=== PATIENT | female | born 1960 | race Two or more races ===

== ENCOUNTER 2018-08-27 23:55 | Emergency (ER) | payer OTHER ==
[~2018-08-27] VITALS: Ht 160 cm; Wt 74.4 kg
[2018-08-28 00:46] LABS: Basophils # (auto) 0.1 uL; Basophils % (auto) 1.2 % (0.0-2.0); Eosinophils # (auto) 0.1 uL; Eosinophils % (auto) 1.5 % (0.0-7.0); Hematocrit 43.1 % (36.0-46.0); Hemoglobin 14.5 g/dL (12.2-16.2); Lymphocytes # (auto) 1.1 uL; Lymphocytes % (auto) 11.7 % (10.0-50.0); Mean Corpuscular Hemoglobin 31.3 pg (28.0-32.0); Mean Corpuscular Hgb Conc. 33.6 g/dL (32.0-36.0); Mean Corpuscular Volume 93.2 fL (80.0-100.0); Monocytes # (auto) 0.4 uL; Monocytes % (auto) 4.2 % (0.0-12.0); Neutrophils # (auto) 7.5 uL; Neutrophils % (auto) 81.4 % (37.0-80.0); Nucleated Red Blood Cells % 0.1 %; Platelet Count (auto) 387 10^3/uL (140-450); Red Blood Cells 4.63 10^6/uL (4.0-5.20); Red Cell Distribution Width 13.6 % (11.8-14.3); White Blood Cell 9.1 10^3/uL (4.4-10.8)
[2018-08-28 01:01] LABS: INR 0.93 (0.9-1.15); Partial Thromboplastin Time 26.1 sec (23.78-33.04)
[2018-08-28 01:04] LABS: Albumin 3.9 g/dL (3.4-5.0); Amylase 44 U/L (25-115); Anion Gap 7 (5-15); Calcium 8.6 mg/dL (8.5-10.1); Carbon Dioxide 27 mmol/L (21-32); Chloride 106 mmol/L (98-107); Glucose 108 mg/dL (74-106); Lipase 170 U/L (73-393); Magnesium 2.4 mg/dL (1.6-2.6); Potassium 3.7 mmol/L (3.5-5.1); Sodium 140 mmol/L (136-145)
[2018-08-28 01:19] LABS: Urine Bacteria FEW /hpf (None Seen); Urine Blood 1+ /uL (Negative); Urine Specific Gravity 1.015 (1.001-1.035); Urine WBC 18 /hpf (0 - 5)
[2018-08-28 01:49] LABS: Alanine Aminotransferase 194 U/L (13-56); Alkaline Phosphatase 146 U/L (45-117); Aspartate Aminotransferase 179 U/L (15-37); BUN/Creatinine Ratio 16.9; Bilirubin, Total 1.6 mg/dL (0.2-1.0); Blood Urea Nitrogen 12 mg/dL (7-18); GFR African American 109 mL/min; GFR Non-African American 90 mL/min; Total Protein 7.9 g/dL (6.4-8.2)
[2018-08-28 04:08] VITALS: BP 120/60
[2018-08-28] MEDS ORDERED: cefTRIAXone SOD 1,000 MG VL IM ONE (04:15)
[2018-08-28] MEDS ORDERED: KETOROLAC TROMETH 60MG/2ML VIAL IM ONE (04:15)
[2018-08-28] MEDS ORDERED: ONDANSETRON ODT 4 MG TAB PO ONE (04:15)
== END 2018-08-28 04:31 | disposition home or self-care (01) ==
LOC: ER 23:57
DX: N39.0 Urinary tract infection, site not specified (principal); K80.20 Calculus of gallbladder without cholecystitis without obstruction; Z90.710 Acquired absence of both cervix and uterus
CPT/HCPCS: 36415; 71046; 74176; 80053; 81001; 82150; 83690; 83735; 84484; 85025; 85610; 85730; 93005; 96372; 99284; J0696; J1885; Q0162

== ENCOUNTER 2024-04-02 06:42 | Day surgery (SDC) | payer MEDICAID ==
[2024-04-01 09:07] LABS: Urine Bacteria None Seen /hpf (None Seen)
[2024-04-01 10:05] LABS: Basophils # (auto) 0 10 ^3/uL (0-0.2); Basophils % (auto) 0.7 % (0.0-2.0); Eosinophils # (auto) 0.1 10 ^3/uL (0-0.8); Eosinophils % (auto) 1.6 % (0.0-7.0); Hematocrit 42.8 % (36.0-46.0); Hemoglobin 14.8 g/dL (12.2-16.2); Lymphocytes # (auto) 2.2 10 ^3/uL (0.4-5.4); Lymphocytes % (auto) 35.4 % (10.0-50.0); Mean Corpuscular Hemoglobin 32.2 pg (28.0-32.0); Mean Corpuscular Hgb Conc. 34.6 g/dL (32.0-36.0); Mean Corpuscular Volume 92.9 fL (80.0-100.0); Monocytes # (auto) 0.3 10 ^3/uL (0-1.3); Monocytes % (auto) 5.5 % (0.0-12.0); Neutrophils # (auto) 3.5 10 ^3/uL (1.6-8.6); Neutrophils % (auto) 56.8 % (37.0-80.0); Nucleated Red Blood Cells % 0.1 %; Platelet Count (auto) 361 10^3/uL (140-450); Red Blood Cells 4.61 10^6/uL (4.0-5.20); Red Cell Distribution Width 13.3 % (11.8-14.3); White Blood Cell 6.2 10^3/uL (4.4-10.8)
[2024-04-01 10:19] LABS: INR 0.99 (0.9-1.15); Partial Thromboplastin Time 26.2 SEC (24.5-34.5); Prothrombin Time 10.5 sec (9.3-11.8)
[2024-04-01 10:22] LABS: Urine Blood 1+ /uL (Negative); Urine Clarity Clear (Clear); Urine Color Light-Yellow (Yellow); Urine Protein, UAD Negative (Negative); Urine Specific Gravity 1.017 (1.001-1.035); Urine Urobilinogen Normal (Negative); Urine WBC <1 /hpf (0 - 5)
[2024-04-01 10:23] LABS: Alanine Aminotransferase 20 U/L (7-40); Albumin 4.5 g/dL (3.2-4.8); Alkaline Phosphatase 107 U/L (46-116); Anion Gap 6 (5-15); Aspartate Aminotransferase 20 U/L (13-40); BUN/Creatinine Ratio 18.9 (10.0-20.0); Bilirubin, Total 0.7 mg/dL (0.2-1.0); Blood Urea Nitrogen 14 mg/dL (9-23); Carbon Dioxide 27 mmol/L (20-31); Chloride 109 mmol/L (98-107); Glucose 96 mg/dL (74-106); Potassium 4.6 mmol/L (3.5-5.1); Sodium 142 mmol/L (136-145); Total Protein 7.6 g/dL (5.7-8.2)
[~2024-04-02] VITALS: Ht 160 cm; Wt 75.7 kg
[~2024-04-02 06:42] MED LIST: ATOR10TA PO
[2024-04-02] MEDS ORDERED: ceFAZolin 2 GM/D5W100ml 100 ML IV ONE (07:28)
[2024-04-02] MEDS ORDERED: MEPERIDINE HCL (50 MG/ML) 1 ML VIAL ONE (08:23)
[2024-04-02] MEDS ORDERED: NEOSTIGMINE 1 MG/ML INJ (10mg/10ML VIAL) ONE (08:23)
[2024-04-02] MEDS ORDERED: DexAMETHasone SOD PHOS 10MG/1ML VIAL INJ ONE (08:23)
[2024-04-02] MEDS ORDERED: LIDOCAINE 1% INJ PF 5ML AMP ONE (08:23)
[2024-04-02] MEDS ORDERED: fentaNYL CITRATE 100 MCG/2 ML VL ONE (08:23)
[2024-04-02] MEDS ORDERED: KETAMINE 50mg/ML 1ml syringe ONE (08:23)
[2024-04-02] MEDS ORDERED: SODIUM CHLORIDE LOCK 10 ML ONE (08:23)
[2024-04-02] MEDS ORDERED: ONDANSETRON HCL 4 MG/2 ML VIAL ONE (08:23)
[2024-04-02] MEDS ORDERED: LIDOCAINE HCL 2% TOP JELLY 5ML TOP ONE (08:23)
[2024-04-02] MEDS ORDERED: PROPOFOL 10 MG/ML 20 ML IV ONE (08:23)
[2024-04-02] MEDS ORDERED: MIDAZOLAM HCL 2MG/2ML 2ml VIAL (1mg/ml) ONE (08:23)
[2024-04-02] MEDS ORDERED: GLYCOPYRROLATE 0.2 MG/ML 1ML VIAL ONE (08:23)
[2024-04-02] MEDS ORDERED: ROCURONIUM 10MG/ML 10ML VIAL IV ONE (08:23)
[2024-04-02] MEDS ORDERED: HYDROmorphone HCL 2 MG/ML VL/or syr IV PRN ×2 (08:30)
[2024-04-02] MEDS ORDERED: KETOROLAC TROMETH 30 MG/ML 1ML VIAL IV ONE (08:30)
[2024-04-02] MEDS ORDERED: fentaNYL CITRATE 100 MCG/2 ML VL IV PRN (08:30)
[2024-04-02] MEDS ORDERED: METOCLOPRAMIDE HCL 5MG/ml INJ 2ml VIAL IV ONE (08:30)
[2024-04-02] MEDS ORDERED: MORPHINE SULFATE INJ 2 MG/ml SYRG IV PRN (08:30)
[2024-04-02] MEDS ORDERED: BUPIVACAINE 0.5% P/F INJ 10 ML VIAL ONE (08:32)
[2024-04-02] MEDS: LIDOCAINE 1%HCL (LOCAL ANESTH) 10 ML MDV IJ ONE (09:29)
[2024-04-02 10:09] VITALS: PULSE 94; RESP 18; TEMP 98; O2SAT 96
[2024-04-02 10:25] VITALS: BP 160/77; PULSE 93; RESP 12; O2SAT 100
--- NOTE | 2024-04-02 14:05 | DVHOP ---
DATE OF SURGERY: 04/02/2024 PREOPERATIVE DIAGNOSIS: Recurrent incisional hernia. POSTOPERATIVE DIAGNOSIS: Recurrent incisional hernia. SURGEON: Anurag Zimmerman MD OVERHEAD CRANE TECHNICIAN: Maximo vazquez. ANESTHESIA: General endotracheal. ANESTHESIOLOGIST: Dr. Kilpatrick. PROCEDURE: Repair of recurrent incisional hernia and lysis of adhesions. DESCRIPTION OF PROCEDURE: Under adequate anesthesia, with the patient's skin prepped and draped after having localized to the hernia itself in the preop area, the patient's lateral aspect of a subcostal incision was opened. Scar divided down to fascia, which was widely retracted was mobilized, the hernia was through the rectus external oblique as well as the transversalis fascia. The layers were grasped with Priyanka clamps and separately approximated using nonabsorbable sutures. Subcutaneous tissues were then irrigated. The patient's wound was closed. It is of note that there were numerous adhesions prior to the repair of the hernia itself that were lysed in order to a certain direct approximation of the fascial defect. The wound was closed using Monocryl sutures, Dermabond glue and Steri-Strips. The patient remained stable throughout the procedure, left the operating room following an accurate needle and sponge count. The number given to me as her daughter went answered. Anurag Zimmerman MD PF TID: [id number] RECEIPT: [id number]
== END 2024-04-02 10:09 | disposition home or self-care (01) ==
LOC: SUR 06:42
PROVIDERS: ATTEND Surgery
DX: K43.2 Incisional hernia without obstruction or gangrene (principal); K66.0 Peritoneal adhesions (postprocedural) (postinfection); E78.5 Hyperlipidemia, unspecified; I10 Essential (primary) hypertension; Z90.49 Acquired absence of other specified parts of digestive tract; Z98.890 Other specified postprocedural states; Z79.899 Other long term (current) drug therapy
CPT/HCPCS: 36415; 49615; 80053; 81001; 85025; 85610; 85730; 86850; 86900; 86901; J1100; J2003; J2175; J2250; J2405; J2704; J3010; J3490

== ENCOUNTER 2024-07-28 11:24 | Inpatient (IN) | payer MEDICAID ==
[~2024-07-28] VITALS: Ht 167.6 cm; Wt 79.0 kg
--- NOTE | 2024-07-28 11:57 | ECG ---
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
--- NOTE | 2024-07-28 12:15 | ED.PDOC ---
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 Pt reports on having a Hernia Sx on her right ABD and on 04/02/24. Pt assumes that the Sx is associated w/ dizziness for 20 days, FLEMING/Blurry Vision x8 days. Pt's BS was 111 ion triage. PMHx of HTN. SHx of Hyster ectomy, Hernia Sx and Cholecystectomy. Denies chills, fever, N/V/D, SOB, CP or no other associated symptom's, modifiers, recent injuries or sick contacts at this time. Chief Complaint: Dizziness Time Seen by MD: 12:10 Primary Care Provider: none Reviewed Notes: Nurses Notes, Medications, Allergies Allergies: Coded Allergies: NO KNOWN ALLERGIES (Unverified , 10/08/14) Home Meds Reported Medications Atorvastatin Calcium (Lipitor) Unknown Strength Tab, PO DAILY, TAB 03/28/24 Information Source: Patient Mode of Arrival: Ambulatory Severity: Moderate Timing: Weeks Duration: Since onset Prehospital treatment: None Past Medical History PAST MEDICAL HISTORY: HTN Surgical History: Cholecystectomy, Hernia Repair, Hysterectomy MOTORMAN/WOMAN History: No Pertinent MOTORMAN/WOMAN History Family History Family History: Reviewed,noncontributory to illness, Unknown Social History Smoker: Non-Smoker Alcohol: Denies ETOH Use Drugs: Denies Drug Use Lives In: Home Constitutional: denies: chills, diaphoresis, fatigue, fever, malaise, sweats, weakness, others EENTM: reports: blurred vision; denies: double vision, ear bleeding, ear discharge, ear drainage, ear pain, ear ringing, eye pain, eye redness, hearing loss, mouth pain, mouth swelling, nasal discharge, nose bleeding, nose congestion, nose pain, photophobia, tearing, throat pain, throat swelling, voice changes, others Respiratory: denies: cough, hemoptysis, orthopnea, SOB at rest, shortness of breath, SOB with excertion, stridor, wheezing, others Cardiovascular: denies: chest pain, dizzy spells, diaphoresis, Dyspnea on exertion, edema, irregular heart beat, left arm pain, lightheadedness, palpitations, PND, syncope, others Gastrointestinal: denies: abdomen distended, abdominal pain, blood streaked bowels, constipated, diarrhea, dysphagia, difficulty swallowing, hematemesis, melena, nausea, poor appetite, poor fluid intake, rectal bleeding, rectal pain, vomiting, others Genitourinary: denies: abnormal vagina bleeding, burning, dyspareunia, dysuria, flank pain, frequency, hematuria, incontinence, pain, , vagina discharge, urgency, others Neurological: reports: dizziness, headache; denies: fainting, left sided numbness, left sided weakness, numbness, paresthesia, pre-existing deficit, ri ght sided numbness, right sided weakness, seizure, speech problems, tingling, tremors, weakness, others Musculoskeletal: denies: back pain, gout, joint pain, joint swelling, muscle pain, muscle stiffness, neck pain, others Integumetry: denies: bruises, change in color, change in hair/nails, dryness, laceration, lesions, lumps, rash, wounds, others Allergic/Immunocompromised: denies: Difficulty Healing, Frequent Infections, Hives, Itching, others Hematologic/Lymphatic: denies: anemia, blood clots, easy bleeding, easy bruising, swollen glands, others Endocrine: denies: excessive hunger, excessive sweating, excessive thirst, excessive urination, flushing, intolerance to cold, intolerance to heat, unexplained weight gain, unexplained weight loss, others Psychiatric: denies: anxiety, bipolar disorder, depression, hopeless, panic disorder, schizophrenia, sleepless, suicidal, others All Other Systems: Reviewed and Negative Physical Exam General Appearance: Moderate Distress, Normal HEENT: Normal ENT Inspection, Pharynx Normal, TMs Normal Neck: Full Range of Motion, Non-Tender, Normal, Normal Inspection Respiratory: Chest Non-Tender, Lungs Clear, No Accessory Muscle Use, No Respiratory Distress, Normal Breath Sounds Cardiovascular: No Edema, No JVD, No Murmur, No Gallop, Normal Peripheral Pulses, Regular Rate/Rhythm Breast Exam: Deferred Gastrointestinal: No Organomegaly, Non Tender, No Pulsatile Mass, Normal Bowel Sounds, Soft Genitalia: Deferred Pelvic: Deferred Rectal: Deferred Extremities: No calf tenderness, Normal capillary refill, Normal inspection, Normal range of motion, Non-tender, No pedal edema Musculoskeletal : Apperance: Normal Neurologic: Alert, economic developer II-XII nml as Tested, No Motor Deficits, Normal Affect, Normal Mood, No Sensory Deficits Cerebellar Function: Normal Reflexes: Normal Skin: Dry, Normal Color, Warm Peripheral Pulses: 3+ Radial (R), 3+ Radial (L) Lymphatic: No Adenopathy Was a procedure done? Was a procedure done?: No Differential Dx Considerations may include: TIA Electrolyte imbalance X-Ray, Labs, Meds, VS Vital Signs Date Time Temp Pulse Resp B/P (MAP) Pulse Ox O2 Delivery O2 Flow Rate FiO2 07/28/24 11:47 90 07/28/24 11:36 97.5 64 17 121/83 (96) 100 97.5 Lab Test 07/28/24 11:35 Range/Units POC Glucose 111 H 70-106 mg/dl Patient alert. Complaining of headache. Vitals stable. Answering questions. Moving all extremities. Possible TIA. Possibly will need MRI. CT of the head reviewed does not show any acute changes. Was given aspirin. Neurology consultation. Explained to the patient. Continue cardiac monitoring. Time of 1ST Reevaluation: 12:40 Reevaluation 1ST: Unchanged Patient Education/Counseling: Diagnosis, Treatment, Prognosis Family Education/Counseling: No Family Present Departure 1 Departure Time of Disposition: 13:59 Impression: Primary Impression: TIA (transient ischemic attack) Disposition: ADMITTED INPATIENT Admit to: Med Surg Condition: Guarded Critical Care Note Critical Care Time?: No Stability Stability form required: No Heart Score Heart Score: Heart Score Response (Comments) Value History N/A 0 EKG N/A 0 Age N/A 0 Risk Factors N/A 0 Troponin N/A 0 Total 0 I personally scribed for HELDER ROSA MD ([email or web address]) on 07/28/24 at 12:15. Electronically submitted by Jerardo Carranza ([email or web address]). HELDER ROSA MD Jul 28, 2024 12:15
--- NOTE | 2024-07-28 13:47 | DVH ---
CT brain without contrast CLINICAL INDICATION: Altered mental status FINDINGS: The study was performed in a multidetector scanner. This study performed taking axial image s from the skull base up to the vertex. Both brain and bone windows are photographed. Dose lowering techniques have been used including automated exposure control and adjustment of mA and /or KV according to patient size. Normal and symmetrical shape and density of brain parenchyma above and below the tentorium is seen. T here is no mass, midline shift or hydrocephalus. No intra/extra-axial collections demonstrated. There is no intracranial hemorrhage. The calvarium is intact. IMPRESSION: 1. No acute intracranial pathology Computed Tomographic Radiation Dosimetry Report: Total CTDI vol = 52 mGy Total DLP = 1029mGy-cm All C T scans at this medical facility are performed using dose modulation techniques as appropriate to a p erformed exam including the following: Automated exposure control was utilized; adjustment of the MA and/or KvP according to patient size; and use of iterative reconstruction technique.
[2024-07-28 14:15] VITALS: PULSE 87; RESP 18; O2SAT 96
[2024-07-28] MEDS: ASPirin 325 MG TAB PO ONE (14:32)
[2024-07-28 15:46] LABS: Basophils # (auto) 0 10 ^3/uL (0-0.2); Basophils % (auto) 0.4 % (0.0-2.0); Eosinophils # (auto) 0.1 10 ^3/uL (0-0.8); Eosinophils % (auto) 1.6 % (0.0-7.0); Hematocrit 44.7 % (36.0-46.0); Hemoglobin 15.3 g/dL (12.2-16.2); Lymphocytes # (auto) 3.3 10 ^3/uL (0.4-5.4); Lymphocytes % (auto) 37.1 % (10.0-50.0); Mean Corpuscular Hemoglobin 31.9 pg (28.0-32.0); Mean Corpuscular Hgb Conc. 34.3 g/dL (32.0-36.0); Mean Corpuscular Volume 92.9 fL (80.0-100.0); Monocytes # (auto) 0.6 10 ^3/uL (0-1.3); Monocytes % (auto) 6.5 % (0.0-12.0); Neutrophils # (auto) 4.8 10 ^3/uL (1.6-8.6); Neutrophils % (auto) 54.4 % (37.0-80.0); Nucleated Red Blood Cells % 0.1 %; Platelet Count (auto) 390 10^3/uL (140-450); Red Blood Cells 4.82 10^6/uL (4.0-5.20); Red Cell Distribution Width 13.5 % (11.8-14.3); White Blood Cell 8.9 10^3/uL (4.4-10.8)
[2024-07-28 15:54] LABS: Chloride 105 mmol/L (98-107); Potassium 4.4 mmol/L (3.5-5.1); Sodium 139 mmol/L (136-145)
[2024-07-28 15:55] LABS: Anion Gap 7 (5-15); Carbon Dioxide 27 mmol/L (20-31)
[2024-07-28 15:59] LABS: Calcium 10.5 mg/dL (8.7-10.4)
[2024-07-28 16:00] LABS: Glucose 98 mg/dL (74-106)
[2024-07-28 16:01] LABS: BUN/Creatinine Ratio 25.6 (10.0-20.0); Blood Urea Nitrogen 21 mg/dL (9-23)
[2024-07-28] MEDS ORDERED: ONDANSETRON HCL 4 MG/2 ML VIAL IV PRN (18:15)
[2024-07-28 22:34] VITALS: BP 129/76; PULSE 79; PULSE 82; RESP 18; TEMP 98; O2SAT 97
[2024-07-29] VITALS (7 sets, daily range): BP systolic 126–137; BP diastolic 52–78; PULSE 75–90; RESP 17–19; TEMP 97.4–98.3; O2SAT 94–97
[2024-07-29] MEDS: ATORVASTATIN 20 MG TAB PO SCH (00:30)
[2024-07-29] MEDS: PANTOPRAZOLE 40 MG/10 ML VIAL INJ IV ONE (02:05)
[2024-07-29] MEDS: ACETAMINOPHEN 325 MG TAB PO PRN (03:25)
--- NOTE | 2024-07-29 05:26 | DVHHP2 ---
History of Present Illness Reason for Visit: Dizziness History of Present Illness 63-year-old female presents for evaluation of dizziness. No patient presents with an eight day history of dizziness with blurred vision and mild frontal headache. She states the symptoms are intermittent and worsening. No unilateral weakness or slurred speech. Denies cardiac or respiratory complaints. Past Medical History Hypertension Past Surgical History Hernia repair, hysterectomy, cholecystectomy Family History Noncontributory Smoke: No ALCOHOL: none Drugs: None Lives: with Family Review of Systems Review of Systems Review of systems are currently negative otherwise addressed in HPI. Allergies: Coded Allergies: NO KNOWN ALLERGIES (Unverified , 10/08/14) Medications Current Medications Medications Dose Ordered Sig/Polly Route Start Time Stop Time Status Last Admin Dose Admin Losartan Potassium 12.5 mg DAILY PO 07/29/24 10:00 Aspirin 81 mg DAILY PO 07/29/24 10:00 Atorvastatin Calcium 10 mg HS PO 07/28/24 22:00 07/29/24 00:30 10 MG Ondansetron HCl 4 mg Q4HP PRN IV 07/28/24 18:15 Enoxaparin Sodium 40 mg DAILY SC 07/29/24 10:00 Acetaminophen 650 mg Q6HP PRN PO 07/28/24 18:15 07/29/24 03:25 650 MG Exam Vital Signs Vital Signs Date Time Temp Pulse Resp B/P (MAP) Pulse Ox O2 Delivery O2 Flow Rate FiO2 07/28/24 22:34 79 18 97 Room Air* 0 21 07/28/24 22:34 98.0 129/76 (93) 98.0 Exam Gen: 63-year-old female in no apparent distress. Skin: Warm, dry, normal color and texture, no rash. HEENT: Normocephalic atraumatic, mucous membranes moist and pink. Neck: Cervical and supraclavicular nodes normal without enlargement, trachea is midline, thyroid gland is normal without masses. Pulmonary: Clear to auscultation and percussion bilaterally. Cardiac: Regular rate and rhythm. No murmur Abdomen: Soft, nontender, nondistended, bowel sounds present all 4 quadrants, no guarding, no rigidity, no organomegaly. Extremities: No cyanosis, clubbing, no edema Neuro: Cranial nerves II through XII grossly intact, normal affect and speech, no focal motor deficits. Labs/Xrays ORDERING PHYSICIAN: HELDER ROSA MD PROCEDURE(s): HWOCT - HEAD WITHOUT CONTRAST REASON: headache ORDER NUMBER(s): [id number], ACCESSION NUMBER(s): [id number] CT brain without contrast CLINICAL INDICATION: Altered mental status FINDINGS: The study was performed in a multidetector scanner. This study performed taking axial images from the skull base up to the vertex. Both brain and bone windows are photographed. Dose lowering techniques have been used including automated exposure control and adjustment of mA and/or KV according to patient size. Normal and symmetrical shape and density of brain parenchyma above and below the tentorium is seen. There is no mass, midline shift or hydrocephalus. No intra/extra-axial collections demonstrated. There is no intracranial hemorrhage. The calvarium is intact. IMPRESSION: 1. No acute intracranial pathology Computed Tomographic Radiation Dosimetry Report: Total CTDI vol = 52 mGy Total DLP = 1029mGy-cm All CT scans at this medical facility are performed using dose modulation techniques as appropriate to a performed exam including the following: Automated exposure control was utilized; adjustment of the MA and/or KvP according to patient size; and use of iterative reconstruction technique. Labs Test 07/28/24 15:26 07/28/24 11:35 Range/Units White Blood Count 8.9 4.4-10.8 10^3/uL Red Blood Count 4.82 4.0-5.20 10^6/uL Hemoglobin 15.3 12.2-16.2 g/dL Hematocrit 44.7 36.0-46.0 % Mean Corpuscular Volume 92.9 80.0-100.0 fL Mean Corpuscular Hemoglobin 31.9 28.0-32.0 pg Mean Corpuscular Hemoglobin Concent 34.3 32.0-36.0 g/dL Red Cell Distribution Width 13.5 11.8-14.3 % Platelet Count 390 140-450 10^3/uL Mean Platelet Volume 7.0 6.9-10.8 fL Neutrophils (%) (Auto) 54.4 37.0-80.0 % Lymphocytes (%) (Auto) 37.1 10.0-50.0 % Monocytes (%) (Auto) 6.5 0.0-12.0 % Eosinophils (%) (Auto) 1.6 0.0-7.0 % Basophils (%) (Auto) 0.4 0.0-2.0 % Neutrophils # (Auto) 4.8 1.6-8.6 10 ^3/uL Lymphocytes # (Auto) 3.3 0.4-5.4 10 ^3/uL Monocytes # (Auto) 0.6 0-1.3 10 ^3/uL Eosinophils # (Auto) 0.1 0-0.8 10 ^3/uL Basophils # (Auto) 0 0-0.2 10 ^3/uL Nucleated Red Blood Cells 0.1 % Sodium Level 139 136-145 mmol/L Potassium Level 4.4 3.5-5.1 mmol/L Chloride Level 105 98-107 mmol/L Carbon Dioxide Level 27 20-31 mmol/L Anion Gap 7 5-15 Blood Urea Nitrogen 21 9-23 mg/dL Creatinine 0.82 0.550-1.02 mg/dL Glomerular Filtration Rate Calc 81 >90 mL/min BUN/Creatinine Ratio 25.6 H 10.0-20.0 Serum Glucose 98 74-106 mg/dL Calcium Level 10.5 H 8.7-10.4 mg/dL Troponin I High Sensitivity 17 </=34 ng/L POC Glucose 111 H 70-106 mg/dl Assessment/Plan Assessment/Plan Assessment Possible TIA Vertigo Hypertension Plan Admit the patient to [facility] to the hospitalist MRI of the brain pending Meclizine trial Resume home medications Continue treatment per orders. Plan discussed with: Patient My Orders Orders - [facility] Procedure Category Date Status Time Losartan Tablet PHA 07/29/24 In Process (Cozaar Tablet) 10:00 Basic Metabolic Panel LAB 07/29/24 Logged 04:00 Aspirin Tablet PHA 07/29/24 In Process 10:00 Atorvastatin (Lipitor) PHA 07/28/24 In Process 22:00 Admit ADMIT 07/28/24 Transmitted 18:05 Ondansetron Hcl PHA 07/28/24 In Process (Zofran) 18:15 Enoxaparin Sodium PHA 07/29/24 In Process (Lovenox) 10:00 Cardiac DIET 07/28/24 Transmitted Diet-2gna,Lofat,Lochol Dinner Condition: Stable CHAD 07/28/24 In Process 18:05 Acetaminophen Tablet PHA 07/28/24 In Process (Tylenol Tablet) 18:15 Bedrest With Bathroom CHAD 07/28/24 In Process Privileg 18:05 Brain Head Wo Contrast MRI 07/28/24 Logged 18:05 Date of Service: Jul 28, 2024 Billing Provider: LUIGI ODEN Common Visit Codes: [id number] INP/OBS CARE (MOD) LUIGI ODEN Jul 29, 2024 05:26
[2024-07-29] MEDS ORDERED: MECLIZINE HCL 25 MG TAB PO PRN (05:30)
[2024-07-29 06:55] LABS: Potassium 3.8 mmol/L (3.5-5.1); Sodium 141 mmol/L (136-145)
[2024-07-29 06:56] LABS: Anion Gap 8 (5-15); Carbon Dioxide 26 mmol/L (20-31)
[2024-07-29 06:57] LABS: Calcium 9.3 mg/dL (8.7-10.4)
[2024-07-29 07:01] LABS: BUN/Creatinine Ratio 21.7 (10.0-20.0); Blood Urea Nitrogen 18 mg/dL (9-23)
[2024-07-29 07:04] LABS: Chloride 107 mmol/L (98-107); Glucose 118 mg/dL (74-106)
[2024-07-29 08:48] LABS: Urine Bacteria FEW /hpf (None Seen); Urine Blood TRACE /uL (Negative); Urine Clarity Clear (Clear); Urine Color Light-Yellow (Yellow); Urine Protein, UAD Negative (Negative); Urine Squamous Epithelial Cell FEW /hpf (<5); Urine Urobilinogen Normal (Negative); Urine WBC 78 /HPF (0-5); Urine pH 5.5 (5.0-9.0)
[2024-07-29] MEDS: LOSARTAN POTASSIUM 25 MG TAB PO SCH (10:25)
[2024-07-29] MEDS: ASPirin 81 mg TAB PO SCH (10:26)
[2024-07-29] MEDS: ENOXAPARIN SOD 40 MG/0.4 ML SYRINGE SC SCH (10:27)
--- NOTE | 2024-07-29 10:27 | DVH ---
PROCEDURE: MRI BRAIN HEAD WO CONTRAST INDICATION: r/o TIA EXAM DATE: 07/29/2024 09:42 AM COMPARISON: Same-day head CT. TECHNIQUE: MRI of the brain without intravenous contrast. FINDINGS: Diffusion weighted images of the brain demonstrate no evidence of acute infarction. There is no evidence of acute intracranial hemorrhage, extra-axial collection, mass effect, midline s hift, herniation or hydrocephalus. The ventricles, sulci and cisterns appear age appropriate. Pzkr-yv-htqsolly changes of chronic microvascular ischemic disease. There are no signal abnormalities on the susceptibility weighted sequences. The major vascular flow voids are present. The visualized paranasal sinuses and mastoid air cells are clear. The surrounding soft tissues and o sseous structures are unremarkable. IMPRESSION: 1. No evidence of acute infarction, intracranial hemorrhage, mass effect or hydrocephalus. Mild-to-mo derate changes of chronic microvascular ischemic disease. HS:Y
--- NOTE | 2024-07-29 13:24 | DVHPN2 ---
Reviewed: Care Plan, H&P, Labs, Medications, Previous Orders, Radiology Changes from previous H/P or p: No Changes Objective Vitals Vital Signs Date Time Temp Pulse Resp B/P (MAP) Pulse Ox O2 Delivery O2 Flow Rate FiO2 07/29/24 10:25 134/68 07/29/24 09:00 97.4 79 19 97 97.4 07/29/24 03:18 Room Air* 0 21 Intake/Output Intake and Output 07/29/24 07:00 Intake Total 0 ml Balance 0 ml Intake Oral 0 ml Medications Current Medications Medications Dose Ordered Sig/Polly Route Start Time Stop Time Status Last Admin Dose Admin Losartan Potassium 12.5 mg DAILY PO 07/29/24 10:00 07/29/24 10:25 12.5 MG Aspirin 81 mg DAILY PO 07/29/24 10:00 07/29/24 10:26 81 MG Atorvastatin Calcium 10 mg HS PO 07/28/24 22:00 07/29/24 00:30 10 MG Ondansetron HCl 4 mg Q4HP PRN IV 07/28/24 18:15 Enoxaparin Sodium 40 mg DAILY SC 07/29/24 10:00 07/29/24 10:27 40 MG Acetaminophen 650 mg Q6HP PRN PO 07/28/24 18:15 07/29/24 03:25 650 MG Meclizine HCl 25 mg Q6HPRN PRN PO 07/29/24 05:30 Laboratory Results Laboratory Tests 07/28/24 15:26 07/29/24 06:13 Chemistry Test 07/28/24 15:26 07/29/24 06:13 Calcium Level 10.5 mg/dL (8.7-10.4) H 9.3 mg/dL (8.7-10.4) Urinalysis Test 07/29/24 08:43 Urine Color Light-yellow (Yellow) Urine Clarity Clear (Clear) Urine pH 5.5 (5.0-9.0) Urine Specific [place] 1.010 (1.001-1.035) Urine Protein Negative (Negative) Urine Ketones Negative (Negative) Urine Blood Trace /uL (Negative) H Urine Nitrite Negative (Negative) Urine Bilirubin Negative (Negative) Urine Urobilinogen Normal mg/dL (Negative) Urine Leukocyte Esterase 3+ /uL (Negative) Urine RBC 12 /hpf (0 - 4) Urine Microscopic WBC 78 /HPF (0-5) H Urine Squamous Epithelial Cells Few /hpf (<5) Urine Bacteria Few /hpf (None Seen) H Urine Glucose Normal mg/dL (Normal) Labs and/or images reviewed: Labs reviewed by me, Image(s) reviewed by me Assessment/Plan Assessment/Plan Dizziness rule out TIA, CT head negative, MRI brain negative, carotid ultrasound pending, Neurology consult by [place] Rizoert Sepsis secondary to urinary tract infection: Blood cultures urine cultures Acute urinary tract infection: Rocephin Hypertension Time spent 45 minutes Plan discussed with: Patient My Orders Orders - CHET NELSON MD Procedure Category Date Status Time Blood Culture BEBE 07/29/24 Logged 13:19 Urine Bacterial BEBE 07/29/24 Logged Culture 13:19 Ceftriaxone 1gm/50ml PHA 07/30/24 Logged D5w (Rocephin) 09:00 Ceftriaxone 1gm/50ml PHA 07/29/24 Logged D5w (Rocephin) 13:30 * Neurology Consult CONS 07/29/24 Transmitted 13:21 Date of Service: Jul 29, 2024 Billing Provider: CHET NELSON MD Common Visit Codes: [id number] INP/OBS CARE(HIGH) CHET NELSON MD Jul 29, 2024 13:24
--- NOTE | 2024-07-29 14:45 | DVH ---
Carotid Duplex Clinical History: Dizziness Comparison: None Technique: Duplex Doppler evaluation of the extracranial carotid and vertebral arteries including color Doppler and spectral/pulsed waveform analysis was performed. Findings: RIGHT SIDE: The peak systolic velocities are 82 cm/s in the CCA, 137 cm/s in the ICA. The ICA/CCA ratio is 1.7. The external carotid artery is patent with peak systolic velocity of 111 cm/s proximally. There is appropriate antegrade flow in the right vertebral artery. LEFT SIDE: The peak systolic velocities are 82 cm/s in the CCA, 110 cm/s in the ICA. The ICA/CCA ratio is 1.3. The external carotid artery is patent with peak systolic velocity of 147 cm/s proximally. There is appropriate antegrade flow in the left vertebral artery. IMPRESSION: 50-69% stenosis of the right internal carotid artery based on peak systolic velocity criteria. No hemodynamically significant stenosis noted in the left carotid system. Nonspecific mildly elevated velocities in the left external carotid artery. Reference: Radiology 2003; 229:340-346 Normal ICA PSV is <125 cm/sec and no plaque or intimal thickening is visible sonographically additional criteria include ICA/CCA PSV ratio <2.0 and ICA EDV <40 cm/sec <50% ICA stenosis ICA PSV is <125 cm/sec and plaque or intimal thickening is visible sonographically additional criteria include ICA/CCA PSV ratio <2.0 and ICA EDV <40 cm/sec 50-69% ICA stenosis ICA PSV is 125-230 cm/sec and plaque is visible sonographically additional criteria include ICA/CCA PSV ratio of 2.0-4.0 and ICA EDV of 40-100 cm/sec 70% ICA stenosis but less than near occlusion ICA PSV is >230 cm/sec and visible plaque and luminal narrowing are seen at larose-scale and color Dopp ler ultrasound (the higher the Doppler parameters lie above the threshold of 230 cm/sec, the greater the likelihood of severe disease) additional criteria include ICA/CCA PSV ratio >4 and ICA EDV >100 cm/sec
[2024-07-29] MEDS: cefTRIAXone 1GM/50ML D5W 50 ML IV ONE (17:36)
[2024-07-29] MEDS: MAALOX PLUS or MAALOX 30 ML PO PRN (17:36)
[2024-07-30 01:00] VITALS: BP 118/65; PULSE 80; RESP 19; TEMP 98.1; O2SAT 96
[2024-07-30 05:00] VITALS: BP 125/79; PULSE 82; RESP 17; TEMP 98.9; O2SAT 96
--- NOTE | 2024-07-30 07:35 | DVHPN2 ---
Reviewed: Care Plan, H&P, Labs, Medications, Previous Orders, Radiology Changes from previous H/P or p: No Changes Objective Vitals Vital Signs Date Time Temp Pulse Resp B/P (MAP) Pulse Ox O2 Delivery O2 Flow Rate FiO2 07/30/24 05:00 98.9 82 17 125/79 (94) 96 98.9 07/29/24 20:00 Room Air* 0 21 Intake/Output Intake and Output 07/30/24 07:00 Intake Total 1550 ml Balance 1550 ml Intake Oral 1500 ml IV Total 50 ml # Voids 4 Medications Current Medications Medications Dose Ordered Sig/Polly Route Start Time Stop Time Status Last Admin Dose Admin Losartan Potassium 12.5 mg DAILY PO 07/29/24 10:00 07/29/24 10:25 12.5 MG Aspirin 81 mg DAILY PO 07/29/24 10:00 07/29/24 10:26 81 MG Atorvastatin Calcium 10 mg HS PO 07/28/24 22:00 07/29/24 21:27 10 MG Ondansetron HCl 4 mg Q4HP PRN IV 07/28/24 18:15 Enoxaparin Sodium 40 mg DAILY SC 07/29/24 10:00 07/29/24 10:27 40 MG Acetaminophen 650 mg Q6HP PRN PO 07/28/24 18:15 07/29/24 03:25 650 MG Meclizine HCl 25 mg Q6HPRN PRN PO 07/29/24 05:30 Ceftriaxone Sodium 50 ml @ 100 mls/hr DAILY@09 IV 07/30/24 09:00 Al Hydrox/Mg Hydrox/Simethicone 30 ml BID PRN PO 07/29/24 15:45 07/29/24 17:36 30 ML Laboratory Results Laboratory Tests 07/28/24 15:26 07/29/24 06:13 Urinalysis Test 07/29/24 08:43 Urine Color Light-yellow (Yellow) Urine Clarity Clear (Clear) Urine pH 5.5 (5.0-9.0) Urine Specific [place] 1.010 (1.001-1.035) Urine Protein Negative (Negative) Urine Ketones Negative (Negative) Urine Blood Trace /uL (Negative) H Urine Nitrite Negative (Negative) Urine Bilirubin Negative (Negative) Urine Urobilinogen Normal mg/dL (Negative) Urine Leukocyte Esterase 3+ /uL (Negative) Urine RBC 12 /hpf (0 - 4) Urine Microscopic WBC 78 /HPF (0-5) H Urine Squamous Epithelial Cells Few /hpf (<5) Urine Bacteria Few /hpf (None Seen) H Urine Glucose Normal mg/dL (Normal) Labs and/or images reviewed: Labs reviewed by me, Image(s) reviewed by me Assessment/Plan Assessment/Plan Dizziness rule out TIA, CT head negative, MRI brain negative,, Neurology consult by Demian Rizo Sepsis secondary to urinary tract infection: Blood cultures urine cultures Acute urinary tract infection: Rocephin Hypertension 50-69 % right internal carotid artery stenosis consult for vascular surgeon Time spent 45 minutes Plan discussed with: Patient My Orders Orders - CHET NELSON MD Procedure Category Date Status Time Blood Culture BEBE 07/29/24 In Process 13:19 Urine Bacterial BEBE 07/29/24 In Process Culture 13:19 Ceftriaxone 1gm/50ml PHA 07/30/24 In Process D5w (Rocephin) 09:00 * Neurology Consult CONS 07/29/24 Transmitted 13:21 Carotid Duplx W Color US 07/29/24 Resulted DOP 13:24 Alum & Mag PHA 07/29/24 In Process Hydrox-Simethicone 15:45 Date of Service: Jul 30, 2024 Billing Provider: CHET NELSON MD Common Visit Codes: [id number] INP/OBS CARE(HIGH) CHET NELSON MD Jul 30, 2024 07:35
--- NOTE | 2024-07-30 08:57 | DVHPN2 ---
Progress Note - Dictate Date Seen: Jul 30, 2024 Subjective :07/28/24 History of Present Illness HPI Comments 63F who is amharic speaking, presents to the ER w/ no prior Hx associated to the c/c of Dizziness. Pt reports on having a Hernia Sx on her right ABD and on 04/02/24. Pt assumes that the Sx is associated w/ dizziness for 20 days, FLEMING/Blurry Vision x8 days. Pt's BS was 111 ion triage. PMHx of HTN. SHx of Hysterectomy, Hernia Sx and Cholecystectomy. Denies chills, fever, N/V/D, SOB, CP or no other associated symptom's, modifiers, recent injuries or sick contacts at this time. Chief Complaint: Dizziness Urinalysis, 07/29/2024: WBC:, 78: Urine leukocyte esterase: 3+ CBC, 07/28/2024: Unremarkable BMP, 07/28/2024: Unremarkable Carotid Doppler, 07/29/2024: 50-69% stenosis of the right internal carotid artery based on peak systolic velocity criteria. No hemodynamically significant stenosis noted in the left carotid system. Nonspecific mildly elevated velocities in the left external carotid artery. MRI head, 07/29/2024: No evidence of acute infarction, intracranial hemorrhage, mass effect or hydrocephalus. [id number] changes of chronic microvascular ischemic disease. Hypertension Cholecystectomy, hernia repair, hysterectomy Reviewed,noncontributory to illness, Unknown Smoker: Non-Smoker Alcohol: Denies ETOH Use Drugs: Denies Drug Use Lives In: Home vital signs Vital Sign Date Time Temp Pulse Resp B/P (MAP) Pulse Ox O2 Delivery O2 Flow Rate FiO2 07/30/24 08:00 Room Air* 0 21 07/30/24 05:00 98.9 82 17 125/79 (94) 96 98.9 Total Intake and Output 07/29/24 07/29/24 07/30/24 15:00 23:00 07:00 Intake Total 900 ml 650 ml Balance 900 ml 650 ml medications Current Medications Medications Dose Ordered Sig/Polly Route Start Time Stop Time Status Last Admin Dose Admin Losartan Potassium 12.5 mg DAILY PO 07/29/24 10:00 07/29/24 10:25 12.5 MG Aspirin 81 mg DAILY PO 07/29/24 10:00 07/29/24 10:26 81 MG Atorvastatin Calcium 10 mg HS PO 07/28/24 22:00 07/29/24 21:27 10 MG Ondansetron HCl 4 mg Q4HP PRN IV 07/28/24 18:15 Enoxaparin Sodium 40 mg DAILY SC 07/29/24 10:00 07/29/24 10:27 40 MG Acetaminophen 650 mg Q6HP PRN PO 07/28/24 18:15 07/29/24 03:25 650 MG Meclizine HCl 25 mg Q6HPRN PRN PO 07/29/24 05:30 Ceftriaxone Sodium 50 ml @ 100 mls/hr DAILY@09 IV 07/30/24 09:00 Al Hydrox/Mg Hydrox/Simethicone 30 ml BID PRN PO 07/29/24 15:45 07/29/24 17:36 30 ML laboratory and microbiology Laboratory Tests 07/29/24 06:13 07/28/24 15:26 Test 07/29/24 06:13 Range/Units Serum Glucose 118 H 74-106 mg/dL RAY LEMUS MD Jul 30, 2024 08:57
[2024-07-30 09:00] VITALS: BP 130/57; PULSE 78; RESP 18; TEMP 97.9; O2SAT 93
[2024-07-30] MEDS: cefTRIAXone 1GM/50ML D5W 50 ML IV SCH (09:43)
--- NOTE | 2024-07-30 10:30 | DVHINCON2 ---
Date of service: Jul 30, [address] Henderson Reason for Consultation TIA History of Present Illness Ms. Rothman is a 63 years old right-handed female with a history of hypertension, anxiety, she came to the [facility] on 07/28/2024 with a chief complaint of dizziness. At this time, she was alert and fully oriented, she provided the following history For two weeks, she has intermittent dizziness, a feeling of unsteadiness/on a boat without associated vision change, weakness, numbness, nausea, vomited, this happened when she was sitting, cooking, but not when she was walking around, at the time when I interviewed her, she was resting in bed, dizziness free, but when she became symptomatic when she closed her eyes. This happened several times daily, with no obvious triggers. This is in the associated with mental status change, falls. She suspects they were stress related Her doctor said she had anxiety previously, and was prescribed a medication but she could not continue because it made her anxiety worse Urinalysis, 07/29/2024: WBC:, 78: Urine leukocyte esterase: 3+ CBC, 07/28/2024: Unremarkable BMP, 07/28/2024: Unremarkable Carotid Doppler, 07/29/2024: 50-69% stenosis of the right internal carotid arter y based on peak systolic velocity criteria. No hemodynamically significant stenosis noted in the left carotid system. Nonspecific mildly elevated velocities in the left external carotid artery. MRI head, 07/29/2024: No evidence of acute infarction, intracranial hemorrhage, mass effect or hydrocephalus. [id number] changes of chronic microvascular ischemic disease. Past Medical History Hypertension, anxiety Past Surgical History Cholecystectomy, hernia repair, hysterectomy Family History: FH: cancer of GI tract G8 FATHER Hypercholesterolemia G8 MOTHER Family History Hypertension, diabetes, dyslipidemia, cancer, no depression, no anxiety Social History She was tobacco smoke, but no history of alcohol or recreational substances abuse Allergies: Coded Allergies: NO KNOWN ALLERGIES (Unverified , 10/08/14) Home Meds Reported Medications Atorvastatin Calcium (Lipitor) Unknown Strength Tab, PO DAILY, TAB 03/28/24 Current Medications Current Medications Medications (Trade) Dose Ordered Sig/Polly Route PRN Reason Start Time Stop Time Status Last Admin Ceftriaxone Sodium 50 ml @ 100 mls/hr DAILY@09 IV 07/30/24 09:00 07/30/24 09:43 Al Hydrox/Mg Hydrox/Simethicone (Maalox Plus) 30 ml BID PRN PO FOR STOMACH DISTRESS 07/29/24 15:45 07/29/24 17:36 Review of Systems As above, the other systems are negative Vital Signs Vital Signs Date Time Temp Pulse Resp B/P (MAP) Pulse Ox O2 Delivery O2 Flow Rate FiO2 07/30/24 09:44 130/57 07/30/24 09:00 97.9 78 18 93 97.9 07/30/24 08:00 Room Air* 0 21 Physical Exam GENERAL EXAM: General: the patient is well developed and nourished. No acute distress. HEENT: Normocephalic, neck is supple, no carotid bruits. No mass. RESPIRATORY: Normal respiratory effort with symmetrical lung expansion. Lungs clear to auscultation. CARDIOVASCULAR: Regular rate and rhythm with no murmurs. S1, S2. ABDOMEN: Soft, nontender, normal bowel sound NEUROLOGICAL: MENTAL STATUS: Awake and alert. Oriented to person, place, time and general circumstances. Able to give personal history SPEECH, LANGUAGE, HIGHER CORTICAL FUNCTION: no aphasia or dysathria. CRANIAL NERVES: #2: Intact visual fountain to confrontation. The optic discs were sharp #3,4,6: Pupils are equal, round and reactive. EOMs full and conjugate. No nystagmus. #5: Facial sensation intact in all three divisions bilaterally. Mandibular strength intact. #7: Facial muscles symmetrical and strength intact. #8: Hearing grossly normal to voice. #9,10: Uvula and soft palate rise in the midline. Swallow and voice are normal. #11: Trapezius and sternomastoid strength intact bilaterally. #12: Tongue midline. No fasciculations or atrophy. SENSATION: Sensation to touch and pinprick is normal. MOTOR: Normal tone in the upper and lower extremity. Normal muscle bulk. No fasciculations. No abnormal movements or posturing. Muscle strength of the major groups in the upper extremities is 5/5. Muscle strength of the major groups in the lower extremities is 5/5. REFLEXES: Deep tendon reflexes normal and symmetrical. No pathological reflexes. CEREBELLAR/COORDINATION: Finger to nose and heel to mota are normal bilaterally. GAIT/STATION: deferred. Labs/Diagnostic Data Labs Test 07/29/24 08:43 07/29/24 06:13 07/28/24 15:26 07/28/24 11:35 Range/Units Urine Color Light-yellow Yellow Urine Clarity Clear Clear Urine pH 5.5 5.0-9.0 Urine Specific [place] 1.010 1.001-1.035 Urine Protein Negative Negative Urine Ketones Negative Negative Urine Blood Trace H Negative /uL Urine Nitrite Negative Negative Urine Bilirubin Negative Negative Urine Urobilinogen Normal Negative mg/dL Urine Leukocyte Esterase 3+ Negative /uL Urine RBC 12 0 - 4 /hpf Urine Microscopic WBC 78 H 0-5 /HPF Urine Squamous Epithelial Cells Few <5 /hpf Urine Bacteria Few H None Seen /hpf Urine Glucose Normal Normal mg/dL Sodium Level 141 136-145 mmol/L Potassium Level 3.8 3.5-5.1 mmol/L Chloride Level 107 98-107 mmol/L Carbon Dioxide Level 26 20-31 mmol/L Anion Gap 8 5-15 Blood Urea Nitrogen 18 9-23 mg/dL Creatinine 0.83 0.550-1.02 mg/dL Glomerular Filtration Rate Calc 80 >90 mL/min BUN/Creatinine Ratio 21.7 H 10.0-20.0 Serum Glucose 118 H 74-106 mg/dL Calcium Level 9.3 8.7-10.4 mg/dL White Blood Count 8.9 4.4-10.8 10^3/uL Red Blood Count 4.82 4.0-5.20 10^6/uL Hemoglobin 15.3 12.2-16.2 g/dL Hematocrit 44.7 36.0-46.0 % Mean Corpuscular Volume 92.9 80.0-100.0 fL Mean Corpuscular Hemoglobin 31.9 28.0-32.0 pg Mean Corpuscular Hemoglobin Concent 34.3 32.0-36.0 g/dL Red Cell Distribution Width 13.5 11.8-14.3 % Platelet Count 390 140-450 10^3/uL Mean Platelet Volume 7.0 6.9-10.8 fL Neutrophils (%) (Auto) 54.4 37.0-80.0 % Lymphocytes (%) (Auto) 37.1 10.0-50.0 % Monocytes (%) (Auto) 6.5 0.0-12.0 % Eosinophils (%) (Auto) 1.6 0.0-7.0 % Basophils (%) (Auto) 0.4 0.0-2.0 % Neutrophils # (Auto) 4.8 1.6-8.6 10 ^3/uL Lymphocytes # (Auto) 3.3 0.4-5.4 10 ^3/uL Monocytes # (Auto) 0.6 0-1.3 10 ^3/uL Eosinophils # (Auto) 0.1 0-0.8 10 ^3/uL Basophils # (Auto) 0 0-0.2 10 ^3/uL Nucleated Red Blood Cells 0.1 % Troponin I High Sensitivity 17 </=34 ng/L POC Glucose 111 H 70-106 mg/dl Microbiology Date/Time Source Procedure Growth Status 07/29/24 08:43 Voided Urine Urine Culture - Preliminary Resulted Assessment Intermittent daily dizziness/unsteadiness feeling with unremarkable MRI Etiology unclear ? Anxiety Urinary tract infection Anxiety Moderate carotid stenosis Plan/Recommendation Monitoring Supportive treatment Telemetry Lipitor profile EEG IV antibiotics Aspirin 81 mg daily Lipitor 10 mg daily Up to chair Physical therapy More recommendation per clinical course Plan discussed with: Patient, Other RAY LEMUS MD Jul 30, 2024 10:30
[2024-07-30 13:50] LABS: LDL Cholesterol 77 mg/dL (< 100)
[2024-07-30 13:51] LABS: Cholesterol 142 mg/dL (< 200)
[2024-07-30 13:54] LABS: HDL Cholesterol 37 mg/dL (40-59); Triglycerides 247 mg/dL (< 150)
[2024-07-30 17:00] VITALS: BP 128/77; PULSE 87; RESP 18; TEMP 97.7; O2SAT 93
--- NOTE | 2024-07-30 18:42 | DVHCONRES ---
Date Seen: Jul 30, 2024 Resident Creating Document: BENITEZ BHATTI Jr., MD Referring Physician Santiago Reason for Consultation Carotid artery stenosis History of Present Illness Ms. Rothman is a 63 years old right-handed female with a history of hypertension, anxiety, [facility] with a chief complaint of dizziness. At this time, she was alert and fully oriented, she provided the following history For two weeks, she has intermittent dizziness, a feeling of unsteadiness/on a boat without associated vision change, weakness, numbness, nausea, vomited, this happened when she was sitting, cooking, but not when she was walking around, at the time when I interviewed her, she was resting in bed, dizziness free, but when she became symptomatic when she closed her eyes. This happened several times daily, with no obvious triggers. This is in the associated with mental status change, falls. She suspects they were stress related Carotid Doppler, 07/29/2024: 50-69% stenosis of the right internal carotid artery based on peak systolic velocity criteria. No hemodynamically significant stenosis noted in the left carotid system. Nonspecific mildly elevated velocities in the left external carotid artery. MRI head, 07/29/2024: No evidence of acute infarction, intracranial hemorrhage, mass effect or hydrocephalus. [id number] changes of chronic microvascular ischemic disease. Past Medical History htn Past Surgical History hysterectomy, roberto, hernia Family History: FH: cancer of GI tract G8 FATHER Hypercholesterolemia G8 MOTHER Allergies: Coded Allergies: NO KNOWN ALLERGIES (Unverified , 10/08/14) Home Meds Reported Medications Atorvastatin Calcium (Lipitor) Unknown Strength Tab, PO DAILY, TAB 03/28/24 Current Medications Current Medications Medications (Trade) Dose Ordered Sig/Polly Route PRN Reason Start Time Stop Time Status Last Admin Ceftriaxone Sodium 50 ml @ 100 mls/hr DAILY@09 IV 07/30/24 09:00 07/30/24 09:43 Vital Signs Vital Signs Date Time Temp Pulse Resp B/P (MAP) Pulse Ox O2 Delivery O2 Flow Rate FiO2 07/30/24 17:00 97.7 87 18 128/77 (94) 93 97.7 07/30/24 08:00 Room Air* 0 21 Labs/Diagnostic Data Labs Test 07/30/24 13:07 07/29/24 08:43 07/29/24 06:13 07/28/24 15:26 Range/Units Triglycerides Level 247 H < 150 mg/dL Cholesterol Level 142 < 200 mg/dL LDL Cholesterol 77 < 100 mg/dL HDL Cholesterol 37 L 40-59 mg/dL Urine Color Light-yellow Yellow Urine Clarity Clear Clear Urine pH 5.5 5.0-9.0 Urine Specific [place] 1.010 1.001-1.035 Urine Protein Negative Negative Urine Ketones Negative Negative Urine Blood Trace H Negative /uL Urine Nitrite Negative Negative Urine Bilirubin Negative Negative Urine Urobilinogen Normal Negative mg/dL Urine Leukocyte Esterase 3+ Negative /uL Urine RBC 12 0 - 4 /hpf Urine Microscopic WBC 78 H 0-5 /HPF Urine Squamous Epithelial Cells Few <5 /hpf Urine Bacteria Few H None Seen /hpf Urine Glucose Normal Normal mg/dL Sodium Level 141 136-145 mmol/L Potassium Level 3.8 3.5-5.1 mmol/L Chloride Level 107 98-107 mmol/L Carbon Dioxide Level 26 20-31 mmol/L Anion Gap 8 5-15 Blood Urea Nitrogen 18 9-23 mg/dL Creatinine 0.83 0.550-1.02 mg/dL Glomerular Filtration Rate Calc 80 >90 mL/min BUN/Creatinine Ratio 21.7 H 10.0-20.0 Serum Glucose 118 H 74-106 mg/dL Calcium Level 9.3 8.7-10.4 mg/dL White Blood Count 8.9 4.4-10.8 10^3/uL Red Blood Count 4.82 4.0-5.20 10^6/uL Hemoglobin 15.3 12.2-16.2 g/dL Hematocrit 44.7 36.0-46.0 % Mean Corpuscular Volume 92.9 80.0-100.0 fL Mean Corpuscular Hemoglobin 31.9 28.0-32.0 pg Mean Corpuscular Hemoglobin Concent 34.3 32.0-36.0 g/dL Red Cell Distribution Width 13.5 11.8-14.3 % Platelet Count 390 140-450 10^3/uL Mean Platelet Volume 7.0 6.9-10.8 fL Neutrophils (%) (Auto) 54.4 37.0-80.0 % Lymphocytes (%) (Auto) 37.1 10.0-50.0 % Monocytes (%) (Auto) 6.5 0.0-12.0 % Eosinophils (%) (Auto) 1.6 0.0-7.0 % Basophils (%) (Auto) 0.4 0.0-2.0 % Neutrophils # (Auto) 4.8 1.6-8.6 10 ^3/uL Lymphocytes # (Auto) 3.3 0.4-5.4 10 ^3/uL Monocytes # (Auto) 0.6 0-1.3 10 ^3/uL Eosinophils # (Auto) 0.1 0-0.8 10 ^3/uL Basophils # (Auto) 0 0-0.2 10 ^3/uL Nucleated Red Blood Cells 0.1 % Troponin I High Sensitivity 17 </=34 ng/L Test 07/28/24 11:35 Range/Units POC Glucose 111 H 70-106 mg/dl Microbiology Date/Time Source Procedure Growth Status 07/29/24 14:30 Blood Blood Culture - Preliminary NO GROWTH AFTER 24 HOURS OF INCUBATION. Resulted 07/29/24 08:43 Voided Urine Urine Culture - Preliminary Resulted Assessment Abdominal pain resolved. Patient tolerating diet. Counseled the patient on findings of gallstones as well as need for change in her diet and weight loss. Patient understands. Patient would like to go home Plan/Recommendation Abdominal pain resolved. Patient tolerating diet. Counseled the patient on findings of gallstones as well as need for change in her diet and weight loss. Patient understands. Patient would like to go home Plan discussed with: Patient BENITEZ BHATTI Jr., MD Jul 30, 2024 18:42
[2024-07-30 21:00] VITALS: BP 115/53; PULSE 80; RESP 17; TEMP 97.3; O2SAT 97
--- NOTE | 2024-07-30 22:52 | DVHEEG2 ---
Neurology EEG Procedural Note Procedural Note EXAM DATE: 07/30/2024 REFERRING DOCTOR: Dr. Lemus TECHNIQUE: Eighteen channels of EEG, 2 channels of EOG, and 1 channel of EKG were recorded using the International 10/20 system. CLINICAL DATA: The patient was referred for an EEG evaluation for the evidence of seizure disorder. MEDICATIONS: See chart BACKGROUND ACTIVITY: While the patient was awake, the background activity consisted of well regulated 10 Hz rhythmic waveforms, symmetrically distributed over both posterior quadrants and was reactive to eye opening. ACTIVATION: Hyperventilation: Not done Photic Stimulation: Not done Sleep: Stage I IMPRESSION: This is a normal EEG. No focal, lateralized, or epileptiform features are noted. If clinically indicated to rule out a seizure disorder, recommend repeat EEG with sleep deprivation. The EKG channel showed a regular heart rate of 78/[place] [address] RAY LEMUS MD Jul 30, 2024 22:52
[2024-07-30 23:41] VITALS: BP 116/50; PULSE 69; RESP 16; TEMP 97.2; O2SAT 98
[2024-07-31 04:56] VITALS: BP 122/67; PULSE 67; RESP 16; TEMP 97.2; O2SAT 95
[2024-07-31] MEDS ORDERED: MECL25CH85 PO (07:48)
[2024-07-31] MEDS ORDERED: CIPR-173 PO (07:48)
--- NOTE | 2024-07-31 07:50 | DVHPN2 ---
Reviewed: Care Plan, H&P, Labs, Medications, Previous Orders, Radiology Changes from previous H/P or p: No Changes Objective Vitals Vital Signs Date Time Temp Pulse Resp B/P (MAP) Pulse Ox O2 Delivery O2 Flow Rate FiO2 07/31/24 04:56 97.2 67 16 122/67 (85) 95 97.2 07/30/24 19:59 Room Air* 0 21 Intake/Output Intake and Output 07/31/24 07:00 Intake Total 1290 ml Balance 1290 ml Intake Oral 1240 ml IV Total 50 ml # Voids 4 # Bowel Movements 1 Medications Current Medications Medications Dose Ordered Sig/Polly Route Start Time Stop Time Status Last Admin Dose Admin Losartan Potassium 12.5 mg DAILY PO 07/29/24 10:00 07/30/24 09:44 12.5 MG Aspirin 81 mg DAILY PO 07/29/24 10:00 07/30/24 09:44 81 MG Atorvastatin Calcium 10 mg HS PO 07/28/24 22:00 07/30/24 21:22 10 MG Ondansetron HCl 4 mg Q4HP PRN IV 07/28/24 18:15 Enoxaparin Sodium 40 mg DAILY SC 07/29/24 10:00 07/30/24 09:45 40 MG Acetaminophen 650 mg Q6HP PRN PO 07/28/24 18:15 07/29/24 03:25 650 MG Meclizine HCl 25 mg Q6HPRN PRN PO 07/29/24 05:30 Ceftriaxone Sodium 50 ml @ 100 mls/hr DAILY@09 IV 07/30/24 09:00 07/30/24 09:43 100 MLS/HR Al Hydrox/Mg Hydrox/Simethicone 30 ml BID PRN PO 07/29/24 15:45 07/29/24 17:36 30 ML Laboratory Results Laboratory Tests 07/28/24 15:26 07/29/24 06:13 Lipid panel Test 07/30/24 13:07 Cholesterol Level 142 mg/dL (< 200) HDL Cholesterol 37 mg/dL (40-59) L Triglycerides Level 247 mg/dL (< 150) H Urinalysis Test 07/29/24 08:43 Urine Color Light-yellow (Yellow) Urine Clarity Clear (Clear) Urine pH 5.5 (5.0-9.0) Urine Specific [place] 1.010 (1.001-1.035) Urine Protein Negative (Negative) Urine Ketones Negative (Negative) Urine Blood Trace /uL (Negative) H Urine Nitrite Negative (Negative) Urine Bilirubin Negative (Negative) Urine Urobilinogen Normal mg/dL (Negative) Urine Leukocyte Esterase 3+ /uL (Negative) Urine RBC 12 /hpf (0 - 4) Urine Microscopic WBC 78 /HPF (0-5) H Urine Squamous Epithelial Cells Few /hpf (<5) Urine Bacteria Few /hpf (None Seen) H Urine Glucose Normal mg/dL (Normal) Microbiology Microbiology Date/Time Source Procedure Growth Status 07/29/24 14:30 Blood Blood Culture - Preliminary NO GROWTH AFTER 24 HOURS OF INCUBATION. Resulted 07/29/24 08:43 Voided Urine Urine Culture - Preliminary Resulted Labs and/or images reviewed: Labs reviewed by me, Image(s) reviewed by me Assessment/Plan Assessment/Plan Dizziness rule out TIA, CT head negative, MRI brain negative,, EEG negative Neurology consult by Demian Rizo Sepsis secondary to urinary tract infection: Blood cultures negative, urine cultures mixed, treated with Rocephin Acute urinary tract infection: Rocephin Hypertension 50-69 % right internal carotid artery stenosis consult for vascular surgeon Dr. Chen appreciated Patient feels better and wants to go home Time spent 45 minutes Plan discussed with: Patient Date of Service: Jul 31, 2024 Billing Provider: CHET NELSON MD Common Visit Codes: [id number] INP/OBS CARE(HIGH) CHET NELSON MD Jul 31, 2024 07:50
--- NOTE | 2024-07-31 07:54 | DVHDS2 ---
Discharge Summary Date of Admission Jul 28, 2024 at 18:05 Date of Discharge: Jul 31, 2024 Admitting Diagnosis Dizziness Wounds: None Labs/Diagnostic Data: Laboratory Results Test 07/30/24 13:07 07/29/24 08:43 07/29/24 06:13 07/28/24 15:26 Triglycerides Level 247 mg/dL (< 150) Cholesterol Level 142 mg/dL (< 200) LDL Cholesterol 77 mg/dL (< 100) HDL Cholesterol 37 mg/dL (40-59) Urine Color Light-yellow (Yellow) Urine Clarity Clear (Clear) Urine pH 5.5 (5.0-9.0) Urine Specific [place] 1.010 (1.001-1.035) Urine Protein Negative (Negative) Urine Ketones Negative (Negative) Urine Blood Trace /uL (Negative) Urine Nitrite Negative (Negative) Urine Bilirubin Negative (Negative) Urine Urobilinogen Normal mg/dL (Negative) Urine Leukocyte Esterase 3+ /uL (Negative) Urine RBC 12 /hpf (0 - 4) Urine Microscopic WBC 78 /HPF (0-5) Urine Squamous Epithelial Cells Few /hpf (<5) Urine Bacteria Few /hpf (None Seen) Urine Glucose Normal mg/dL (Normal) Sodium Level 141 mmol/L (136-145) Potassium Level 3.8 mmol/L (3.5-5.1) Chloride Level 107 mmol/L (98-107) Carbon Dioxide Level 26 mmol/L (20-31) Anion Gap 8 (5-15) Blood Urea Nitrogen 18 mg/dL (9-23) Creatinine 0.83 mg/dL (0.550-1.02) Glomerular Filtration Rate Calc 80 mL/min (>90) BUN/Creatinine Ratio 21.7 (10.0-20.0) Serum Glucose 118 mg/dL (74-106) Calcium Level 9.3 mg/dL (8.7-10.4) White Blood Count 8.9 10^3/uL (4.4-10.8) Red Blood Count 4.82 10^6/uL (4.0-5.20) Hemoglobin 15.3 g/dL (12.2-16.2) Hematocrit 44.7 % (36.0-46.0) Mean Corpuscular Volume 92.9 fL (80.0-100.0) Mean Corpuscular Hemoglobin 31.9 pg (28.0-32.0) Mean Corpuscular Hemoglobin Concent 34.3 g/dL (32.0-36.0) Red Cell Distribution Width 13.5 % (11.8-14.3) Platelet Count 390 10^3/uL (140-450) Mean Platelet Volume 7.0 fL (6.9-10.8) Neutrophils (%) (Auto) 54.4 % (37.0-80.0) Lymphocytes (%) (Auto) 37.1 % (10.0-50.0) Monocytes (%) (Auto) 6.5 % (0.0-12.0) Eosinophils (%) (Auto) 1.6 % (0.0-7.0) Basophils (%) (Auto) 0.4 % (0.0-2.0) Neutrophils # (Auto) 4.8 10 ^3/uL (1.6-8.6) Lymphocytes # (Auto) 3.3 10 ^3/uL (0.4-5.4) Monocytes # (Auto) 0.6 10 ^3/uL (0-1.3) Eosinophils # (Auto) 0.1 10 ^3/uL (0-0.8) Basophils # (Auto) 0 10 ^3/uL (0-0.2) Nucleated Red Blood Cells 0.1 % Troponin I High Sensitivity 17 ng/L (</=34) Test 07/28/24 11:35 POC Glucose 111 mg/dl (70-106) Other Laboratory Tests 07/29/24 06:13 07/28/24 15:26 Brief Hx & Hospital Course: 63-year-old female with a history of hypertension came in for dizziness. CT head negative MRI brain negative EEG negative neurology consult by Dr. Soto placed on Antivert also found to be in sepsis secondary to urinary tract infection placed on Rocephin blood cultures negative urine cultures were mixed patient had 50-69 percent right internal carotid artery stenosis seen by vascular surgeon Dr.Dr Carter no intervention was needed. Patient feels better walking ambulatory and wants to go home. Discharged on Cipro and Antivert Consults/Reason for consult Neurology Dr. Soto Surgeon Dr. Carter Operations or Procedures MRI brain without contrast EEG CT head Condition at Discharge: Fair Final Diagnosis/Problems List Dizziness rule out TIA, CT head negative, MRI brain negative,, EEG negative Neurology consult by Demian Rizo Sepsis secondary to urinary tract infection: Blood cultures negative, urine cultures mixed, treated with Rocephin Acute urinary tract infection: Rocephin Hypertension 50-69 % right internal carotid artery stenosis consult for vascular surgeon Dr. Chen appreciated Discharge Disposition: Home Discharge Instruct/Medications Diet: Regular Activity: Light activity Follow Up/Referral: Follow up with the primary Dr Medications: Antivert Cipro Transmitted to pharmacy 35 (Time taken for discharge summary 35 minute) Discharge Statement: "Patient was advised to return to the ER or call 911 if any headaches, dizziness, shortness of breath, chest pain, abdominal pain, bleeding, fevers, or worsening of medical condition. Patient was counseled about treatment plan, medications, possible side effects, patientverbalized understanding. All questions were answered to the best of my ability. This discharge took greater then 30 minutes in planning, reviewing documentation, counseling the patient, and discussing with other team members." ASSESSMENT ASSESSMENT Hospital Course Improved Assessment Dizziness rule out TIA, CT head negative, MRI brain negative,, EEG negative Neurology consult by Demian Rizo Sepsis secondary to urinary tract infection: Blood cultures negative, urine cultures mixed, treated with Rocephin Acute urinary tract infection: Rocephin Hypertension 50-69 % right internal carotid artery stenosis consult for vascular surgeon Dr. Chen appreciated Date of Service: Jul 31, 2024 Billing Provider: CHET NELSON MD Common Visit Codes: [id number] DISCH DAY >30min CHET NELSON MD Jul 31, 2024 07:54
[2024-07-31 08:00] VITALS: PULSE 67; RESP 18; O2SAT 98
[2024-07-31 09:04] VITALS: BP 121/70; PULSE 67; RESP 17; TEMP 97.6; O2SAT 98
[2024-07-31 10:07] VITALS: BP 121/70; PULSE 67; RESP 18; TEMP 97.6; O2SAT 98
== END 2024-07-31 11:20 | disposition home or self-care (01) | DRG 463 ==
LOC: ER 11:24 → OVERFLOW 18:05 → CENTRAL 07-29 03:15
PROVIDERS: ADMIT Family Medicine; ATTEND Family Medicine
DX: N30.01 Acute cystitis with hematuria (principal); G93.41 Metabolic encephalopathy; I65.21 Occlusion and stenosis of right carotid artery; I10 Essential (primary) hypertension; F41.9 Anxiety disorder, unspecified; Z90.710 Acquired absence of both cervix and uterus; Z79.899 Other long term (current) drug therapy; Z90.49 Acquired absence of other specified parts of digestive tract; Z83.3 Family history of diabetes mellitus; Z82.49 Family history of ischemic heart disease and other diseases of the circulatory system; Z88.8 Allergy status to other drugs, medicaments and biological substances; Z79.82 Long term (current) use of aspirin; Z80.0 Family history of malignant neoplasm of digestive organs; Z83.49 Family history of other endocrine, nutritional and metabolic diseases
CPT/HCPCS: 36415; 70450; 70551; 80048; 80061; 81001; 82962; 84484; 85025; 87040; 87086; 93005; 93886; 95819; 97110; 97116; 97163; 97530; G0378; J2470